=== PATIENT | male | born 2000 | race Caucasian/White ===

== ENCOUNTER 2021-05-04 22:33 | Emergency (ER) | payer OTHER ==
[2021-05-04 22:39] VITALS: BMI 29.7
[2021-05-05] MEDS ORDERED: SODIUM CHLORIDE 500 ML IV STA (00:36)
[2021-05-05 02:15] VITALS: BP 110/66; PULSE 92
[2021-05-05 02:26] VITALS: TEMP 99.3
[2021-05-05 02:48] LABS: BASO % 0.4 % (0-2.0); EOS % 0.7 % (0-4.5); HEMATOCRIT 39.6 % (35.4-49); HEMOGLOBIN 13.8 GM/dL (11.7-16.9); LYMPH % 18.8 % (8-40); MCH 30.4 pg (25.7-33.7); MCHC 34.8 g/dl (32.0-35.9); MEAN CELL VOLUME 87.4 fl (80-96); MEAN PLT VOLUME 10.7 fl (7.5-11.1); MONO % 8.6 % (3.8-10.2); NEUT % 71.5 % (42.8-82.8); PLATELET COUNT 229 10^3/uL (134-434); RBC 4.53 M/mm3 (4.00-5.60); RDW 13.7 % (11.9-15.9); WHITE BLOOD COUNT 13.7 K/mm3 (4.0-10.0)
[2021-05-05 03:02] LABS: INR 1.16 (0.83-1.09); PROTHROMBIN TIME (PATIENT) 13.6 SEC (9.7-13.0)
[2021-05-05 03:05] LABS: ACTIVATED PTT 34.4 SECONDS (25.2-36.5)
[2021-05-05 04:07] LABS: BLOOD UREA NITROGEN 10.3 mg/dL (7-18); CREATININE 0.7 mg/dL (0.55-1.3); GLUCOSE,RANDOM 89 mg/dL (74-106)
[2021-05-05 04:08] LABS: ALBUMIN 3.9 g/dl (3.4-5.0); ALK PHOS 130 U/L (45-117); BILIRUBIN,TOTAL 0.7 mg/dL (0.2-1); CALCIUM 8.4 mg/dL (8.5-10.1); CHLORIDE 103 mmol/L (98-107); CO2 24 mmol/L (21-32); N-TERMINAL BNP 9.62 pg/ml (5-125); SGOT/AST 33 U/L (15-37); SGPT/ALT 46 U/L (13-61); SODIUM 136 mmol/L (136-145); TOT PROT 7.9 g/dl (6.4-8.2)
[2021-05-05 04:11] LABS: ANION GAP 9 MMOL/L (8-16)
[2021-05-05 04:28] LABS: PH,URINE 6.5 (5.0-8.0); URINE APPEARANCE CLEAR; URINE BILIRUBIN NEGATIVE (NEGATIVE); URINE COLOR YELLOW; URINE GLUCOSE (UA) NEGATIVE (NEGATIVE); URINE KETONE 1+ (NEGATIVE); URINE LEUK ESTERASE NEGATIVE (NEGATIVE); URINE NITRITE NEGATIVE (NEGATIVE); URINE PROTEIN NEGATIVE (NEGATIVE)
== END 2021-05-05 04:44 | disposition home or self-care (01) ==
LOC: JER 22:33
PROC: 3E0337Z Introduction of Electrolytic and Water Balance Substance into Peripheral Vein, Percutaneous Approach (ICD-10-PCS; principal; 2021-05-04)
DX: S29.011A Strain of muscle and tendon of front wall of thorax, initial encounter (principal); J06.9 Acute upper respiratory infection, unspecified; Z11.52 Encounter for screening for COVID-19
CPT/HCPCS: 36415; 71046-TC-FY; 80053; 81003; 82550; 82553; 83605; 83880; 84484; 85025; 85379; 85610; 85730; 87040; 87086; 87804; 93005; 93010; 99285-25; C9803; U0003; U0005